=== PATIENT | female | born 1955 | race Caucasian/White ===

== ENCOUNTER 2018-03-29 18:36 | Emergency (ER) | payer SELFPAY ==
[2018-03-29 19:29] LABS: BASOPHILS % 0.3 (0.0-1.5); EOSINOPHILS % 1.3 % (0.0-6.8); MEAN CORPUSCULAR HEMOGLOBIN 31.3 pg (28.0-34.0); MONOCYTES % 3.5 % (0.0-11.0); NEUTROPHILS # 9.8 # k/uL (1.4-7.7)
[2018-03-29 20:06] LABS: eGFR (Non-African) > 60
[2018-03-29] MEDS ORDERED: methylPREDNISolone ACETATE 80 MG/ML VIAL IM ONE (21:18)
--- NOTE | 2018-03-29 21:26 | ED Physician Documentation ---
Dyspnea - HISTORIAN Historian: patient, spouse - HPI Stated Complaint: cough Chief Complaint: Dyspnea Onset: days ago Duration: worse Initiating Event: upper respiratory illness Severity: moderate Associated Symptoms: chills, fever, productive cough. denies: sweating, chest pain, chest discomfort, bloody cough, heart racing, leg pain, calf pain, dizziness, light-headedness, anxiety, hands tingling, face tingling, muscle spasms Further Comments: yes (62 year old female patient presents with cough, nas estion, subjective fever and dyspnea for 2 weeks. Has not seen PCP.) - ROS CONST: recent illness EYES/ENT: nasal drainage, nasal congestion. denies: problems with vision, sore throat GI/: none NEURO/PSYCH: headache - PAST HX Lung Disease: COPD PE Risk Factors: hypertension Allergies/Adverse Reactions: Allergies Allergy/AdvReac Type Severity Reaction Status Date / Time No Known Allergies Allergy Verified 03/29/18 19:32 Home Medications: Ambulatory Orders Medication Instructions Recorded Albuterol Sulfate [Proair HFA] 1 puff INH PRN PRN 03/29/18 Azithromycin [Zithromax] 250 mg PO DAILY #6 tablet 03/29/18 Ipratropium Center [Atrovent Hfa] 2 puff INH BID 03/29/18 Lisinopril [Prinivil] 20 mg PO D 03/29/18 Methylprednisolone [Medrol] 4 mg PO DAILY #1 tab.ds.pk 03/29/18 Spironolactone [Aldactone] 25 mg PO D 03/29/18 amLODIPine BESYLATE [Norvasc] 5 mg PO D 03/29/18 - SOCIAL HX Smoking History: cigarettes, greater than 1 pack/day - FAMILY HX Family History: denies: none - VITAL SIGNS Vital Signs: Vital Signs Temp Pulse Resp BP Pulse Ox 98.2 F 104 H 18 170/99 95 03/29/18 18:36 03/29/18 18:36 03/29/18 18:36 03/29/18 18:36 03/29/18 18:36 - REVIEWED ASSESSMENTS Nursing Assessment Reviewed: Yes Vitals Reviewed: Yes ED Results Lab/Radiology - Lab Results Lab Results: Lab Results 03/29/18 03/29/18 19:21 19:21 WBC 12.00 K/ul K/ul (4.00-12.00) RBC 4.68 M/ul M/ul (3.90-5.20) Hgb 14.6 g/dL g/dL (12.0-16.0) Hct 43.9 % % (34.5-46.5) MCV 94.0 fl fl (80.0-100.0) MCH 31.3 pg pg (28.0-34.0) MCHC 33.3 g/dL g/dL (30.0-36.0) RDW 12.0 % % (11.3-14.3) Plt Count 308 K/mm3 K/mm3 (130-400) Neut % (Auto) 81.9 % H % (39.0-79.0) Lymph % (Auto) 13.0 % L % (16.0-50.0) [place] % (Auto) 3.5 % % (0.0-11.0) Eos % (Auto) 1.3 % % (0.0-6.8) Baso % (Auto) 0.3 (0.0-1.5) Neut # (Auto) 9.8 # k/uL H # k/uL (1.4-7.7) Lymph # (Auto) 1.6 # k/uL # k/uL (0.6-4.0) [place] # (Auto) 0.4 # k/uL # k/uL (0.0-0.9) Eos # (Auto) 0.2 # k/uL # k/uL (0.0-0.6) Baso # (Auto) 0.0 # k/uL # k/uL (0.0-0.5) Sodium 141 mmol/L mmol/L (136-145) Potassium 4.1 mmol/L mmol/L (3.5-5.1) Chloride 101 mmol/L mmol/L (98-107) Carbon Dioxide 25 mmol/L mmol/L (22-30) BUN 14 mg/dL mg/dL (7-17) Creatinine 0.90 mg/dL mg/dL (0.52-1.04) Estimated Creat Clear 97 Est GFR ( Amer) > 60 (60 - ) Est GFR (Non-Af Amer) > 60 (60 - ) Glucose 93 mg/dL mg/dL (74-106) Calcium 9.1 mg/dL mg/dL (8.4-10.2) Total Bilirubin 0.8 mg/dL mg/dL (0.2-1.3) AST 28 U/L U/L (15-46) ALT 26 U/L U/L (13-69) Alkaline Phosphatase 135 U/L H U/L (38-126) Total Protein 8.1 g/dL g/dL (6.3-8.2) Albumin 4.3 g/dL g/dL (3.5-5.0) - Radiology Radiology Impressions: Chest two views History: Cough and shortness of breath Findings: The lungs are mildly hyperinflated. Reticular and ground-glass opacity is present in the right upper lobe. There is no pleural effusion. Heart size and pulmonary vascularity are normal. Osseous structures are intact. Impression: Right upper lobe infiltrate of uncertain chronicity. Recommend radiographic follow-up. Electronically signed on Mar 29, 2018 9:06:22 PM CDT by: Pito Judge - Orders Orders: ED Orders Category Date Time Status CHEST 2VIEW [RAD] Stat Exams 03/29/18 19:07 Taken CBC/PLATELET/DIFF Stat Lab 03/29/18 19:21 Completed CMP Stat Lab 03/29/18 19:21 Completed methylPREDNISolone ACETATE [Depo-Medrol] Med 03/29/18 21:18 Discontinued 80 mg IM NOW ONE Dyspnea Physical Exam - EXAM General Appearance: mild distress EENT: eye inspection normal, ENT inspection normal, pharynx normal, no signs of dehydration, MARYANNE, no nystagmus, TM's nml Respiratory: no resp. distress, no pain on inspiration, speaks full sentences, decreased air movement (bases) CVS: reg. rate & rhythm, no murmur, no gallop, no friction rub, pulses full, pulses equal Abdomen: non-tender, no organomegaly, no distention, no ascites Skin: color nml, no rash, warm, nml palp., dry Extremities: non-tender, normal range of motion, no evidence of injury, no edema, J, [employer]T [employer]ER Neuro/Psych: oriented x3, CN's nml as tested, motor nml, sensation nml, mood/affect nml Discharge Clincal Impression: COPD exacerbation Prescriptions: Azithromycin [Zithromax] 250 mg PO DAILY #6 tablet Methylprednisolone [Medrol] 4 mg PO DAILY #1 tab.ds.pk Referrals: Primary Doctor,No [Primary Care Provider] - 2 Days Additional Instructions: 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 vineyard supervisor an over the counter decongestant such as pseudoped, dayquil and Nyquil at your pharmacy. Treat your symptoms with over the counter medication. You may want to try Vicks rub on your chest and/or feet Cough drops as needed for cough and sore throat. Increase your fluid intake juices, hot tea, non-caffeinated beverages Use a humidifier in the room where you sleep. You can also sit in a steam filled bathroom 1-2 times a day. Tylenol or Ibuprofen as needed for fever, pain and body aches. See your primary care doctor if you symptoms become worse. Condition: Stable Disposition: 01 HOME, SELF-CARE Decision to Admit: NO Decision Time: 21:25
[2018-03-29 22:33] VITALS: BP 166/96
--- NOTE | 2018-03-30 06:43 | Diagnostic Imaging Report ---
MAGDALENE PEREZ (MUSICAL INSTRUMENTS ASSEMBLER) - ER [facility] [address] [id number] Report Submission Date: Mar 29, 2018 9:06:22 PM CDT Patient Study Name: ARELI RODRIGUEZ Date: Mar 29, 2018 8:26:32 PM CDT Modality Type: DX Gender: F Description: CHEST : 53 Institution: [facility] Physician: MAGDALENE PEREZ (MUSICAL INSTRUMENTS ASSEMBLER) - ER Chest two views History: Cough and shortness of breath Findings: The lungs are mildly hyperinflated. Reticular and ground-glass opacity is present in the right upper lobe. There is no pleural effusion. Heart size and pulmonary vascularity are normal. Osseous structures are intact. Impression: Right upper lobe infiltrate of uncertain chronicity. Recommend radiographic follow-up. Electronically signed on Mar 29, 2018 9:06:22 PM CDT by: Pito JAIME
== END 2018-03-29 21:35 | disposition home or self-care (01) ==
LOC: ED 18:36
DX: J44.1 Chronic obstructive pulmonary disease with (acute) exacerbation (principal)
CPT/HCPCS: 71046; 80053; 85025; J1040; 96372; 99284